=== PATIENT | female | born 1990 | race Caucasian/White ===

== ENCOUNTER 2018-11-01 11:25 | Emergency (ER) | payer BC ==
[~2018-11-01] VITALS: Ht 167.6 cm; Wt 85.0 kg
[2018-11-01 11:28] VITALS: Ht 167.6 cm; Wt 85.0 kg
--- NOTE | 2018-11-01 14:39 | ERD ---
ER Documentation Chief Complaint Chief Complaint pt bib with c/o vag bleed approx 4 wks preg HPI 28-year-old female presenting with vaginal bleeding for approximately 2 days. Patient's bleeding has resolved and was only when she wiped there was no clots. Patient believes she is about 4 weeks . A0. LNMP September 23. Has not had an ultrasound or OB appointment yet for this . Denies any lateralized abdominal pain and denies any vomiting. Denies medical problems. NKDA. Surgical history denies. Social history denies ROS All systems reviewed and are negative except as per history of present illness. Allergies Allergies: Coded Allergies: No Known Allergy (Unverified , 11/01/18) PMhx/Soc Medical and Surgical Hx: pt denies Medical Hx, pt denies Surgical Hx Hx Alcohol Use: No Hx Substance Use: No Smoking Status: Never smoker FmHx Family History: No diabetes, No coronary disease, No other Physical Exam Vitals Vital Signs Date Temp Pulse Resp B/P (MAP) Pulse Ox O2 O2 Flow FiO2 Time Delivery Rate 11/01/18 99.1 90 18 116/60 97 11:28 (78) Physical Exam GENERAL: The patient is well-appearing, well-nourished, in no acute distress CHEST: Clear to auscultation bilaterally. There are no rales, wheezes or rhonchi. HEART: Regular rate and rhythm. No murmurs, clicks, rubs or gallops. ABDOMEN:Soft, nontender and nondistended. Good bowel sounds. No rebound or guarding. No gross peritonitis. No gross organomegaly or masses. BACK: No midline or flank tenderness. Result Diagram: 11/01/18 1310 Results 24 hrs Laboratory Tests Test 11/01/18 13:10 White Blood Count 4.8 10^3/ul Red Blood Count 4.78 10^6/ul Hemoglobin 13.7 g/dl Hematocrit 41.7 % Mean Corpuscular Volume 87.2 fl Mean Corpuscular Hemoglobin 28.7 pg Mean Corpuscular Hemoglobin Concent 32.9 g/dl Red Cell Distribution Width 13.8 % Platelet Count 173 10^3/UL Mean Platelet Volume 11.6 fl Immature Granulocytes % 0.200 % Neutrophils % 62.8 % Lymphocytes % 30.0 % Monocytes % 5.6 % Eosinophils % 1.0 % Basophils % 0.4 % Nucleated Red Blood Cells % 0.0 /100WBC Immature Granulocytes # 0.010 10^3/ul Neutrophils # 3.0 10^3/ul Lymphocytes # 1.5 10^3/ul Monocytes # 0.3 10^3/ul Eosinophils # 0.1 10^3/ul Basophils # 0.0 10^3/ul Nucleated Red Blood Cells # 0.0 10^3/ul Urine Color STRAW Urine Clarity CLEAR Urine pH 7.[address] 1.009 Urine Ketones 1+ mg/dL Urine Nitrite NEGATIVE mg/dL Urine Bilirubin NEGATIVE mg/dL Urine Urobilinogen NEGATIVE mg/dL Urine Leukocyte Esterase NEGATIVE [place]/ul Urine Hemoglobin NEGATIVE mg/dL Urine Glucose NEGATIVE mg/dL Urine Total Protein NEGATIVE mg/dl Beta HCG, Quantitative 8426.5 mIU/ml Procedures/MDM vDIAGNOSTIC IMAGING REPORT Patient: KIERSTEN TAYLOR : 1990 Age: 28 Sex: F MR #: [id number] DOS: 11/01/18 1253 Ordering MD: DALLIN MARTINEZ PA-C [facility] Room/Bed: PROCEDURE: US OB. CLINICAL INDICATION: Vaginal spotting TECHNIQUE: Transabdominal views of the pelvis are available for review. COMPARISON: No prior studies are available for comparison. FINDINGS: There is a single intrauterine gestation with the crown-rump length measuring 0.15 cm and the gestational sac measures 0.8 cm, corresponding to a gestational age of 5 weeks and 3 days. The heart tones are not yet identified. The ovaries are normal in size and echogenicity. Normal Doppler flow is identified in both ovaries. The right ovary measures 3.8 x 2.8 x 2.6 cm. The left ovary measures 4.1 x 2.4 x 2.4 cm. There is a 1.8 cm simple cyst. There is no free fluid. RPTAT: AA IMPRESSION: Single intrauterine with an estimated gestational age of 5 weeks and 3 days, based on ultrasound measurements. DEVON based on ultrasound measurements is 07/01/19. heart tones are not yet identified. Close follow-up ultrasound and HCG is recommended. MDM: 28-year-old female presenting with vaginal bleeding and . is noted to be in the uterus however no heart tones are noted. This could be secondary to early gestation or possible demise. Patient has appointment tomorrow with OB. I have low suspicion for ectopic . I have low suspicion for hemodynamic instability. No signs of infection and patient is Rh+ and does not require RhoGam. Patient is told if symptoms change or worsen to return immediately to the ER. All questions answered at discharge Departure Diagnosis: Primary Impression: Vaginal bleeding Condition: Stable Patient Instructions: Possible Miscarriage (Threatened ) Referrals: [facility] YOU HAVE RECEIVED A MEDICAL SCREENING EXAM AND THE RESULTS INDICATE THAT YOU DO NOT HAVE A CONDITION THAT REQUIRES URGENT TREATMENT IN THE EMERGENCY DEPARTMENT. FURTHER EVALUATION AND TREATMENT OF YOUR CONDITION CAN WAIT UNTIL YOU ARE SEEN IN YOUR DOCTORS OFFICE WITHIN THE NEXT 1-2 DAYS. IT IS YOUR RESPONSIBILITY TO MAKE AN APPOINTMENT FOR FOLOW-UP CARE. IF YOU HAVE A PRIMARY DOCTOR --you should call your primary doctor and schedule an appointment IF YOU DO NOT HAVE A PRIMARY DOCTOR YOU CAN CALL OUR PHYSICIAN REFERRAL HOTLINE AT IF YOU CAN NOT AFFORD TO SEE A PHYSICIAN YOU CAN CHOSE FROM THE FOLLOWING [facility] [address] [facility] [address] [facility] [facility] [address] [facility] [address] [facility] [address] [facility] [facility]. [address] Additional Instructions: FOLLOW UP WITH YOUR PRIMARY CARE PHYSICIAN TOMORROW.Return to this facility if you are not improving as expected. KYLE MARTINEZ PA-C Nov 01, 2018 14:39
[2018-11-01 14:51] VITALS: BP 122/56; PULSE 78; RESP 18
== END 2018-11-01 14:51 | disposition home or self-care (01) ==
LOC: FTE 11:25
DX: O20.9 Hemorrhage in early pregnancy, unspecified (principal); Z3A.01 Less than 8 weeks gestation of pregnancy
CPT/HCPCS: 76801; 81003; 84702; 85025; 86900; 86901; Z7502